=== PATIENT | female | born 2000 | race Asian ===

== ENCOUNTER 2022-10-08 16:46 | Emergency (ER) | payer OTHER ==
[~2022-10-08] VITALS: Ht 177.8 cm; Wt 55.3 kg
== END 2022-10-08 18:02 | disposition home or self-care (01) ==
LOC: ED 16:46
DX: R30.0 Dysuria (principal); Z87.898 Personal history of other specified conditions
CPT/HCPCS: 81000; 81025; 87490; 87590; 96372; 99283; J0696

== ENCOUNTER 2022-11-09 13:48 | Emergency (ER) | payer OTHER ==
[~2022-11-09] VITALS: Ht 177.8 cm; Wt 56.7 kg
[2022-11-09 13:50] VITALS: BP 115/70; TEMP 98.3
== END 2022-11-09 14:30 | disposition home or self-care (01) ==
LOC: ED 13:48
DX: N30.80 Other cystitis without hematuria (principal)
CPT/HCPCS: 81000; 81025; 96372; 99283; J1885

== ENCOUNTER 2022-12-25 18:01 | Emergency (ER) | payer OTHER | END 2022-12-25 18:24 | disposition left against medical advice (07) | LOC: ED 18:01 | DX: Z53.21 Procedure and treatment not carried out due to patient leaving prior to being seen by health care provider (principal) ==

== ENCOUNTER 2023-02-07 09:03 | Outpatient (CLI) | payer OTHER | END 2023-02-07 20:23 | disposition home or self-care (01) | LOC: LABW 09:03 | PROVIDERS: ATTEND Family Medicine | DX: N39.0 Urinary tract infection, site not specified (principal) | CPT/HCPCS: 81000; 87077; 87086; 87088; 87186 ==